=== PATIENT | male | born 2000 | race Asian ===

== ENCOUNTER 2018-01-30 18:34 | Emergency (ER) | payer OTHER ==
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
[2018-01-30 19:49] VITALS: BP 118/76
== END 2018-01-30 19:49 | disposition home or self-care (01) ==
LOC: EDUNIT#
DX: S39.012A Strain of muscle, fascia and tendon of lower back, initial encounter (principal); V04.90XA Pedestrian on foot injured in collision with heavy transport vehicle or bus, unspecified whether traffic or nontraffic accident, initial encounter; Y92.410 Unspecified street and highway as the place of occurrence of the external cause; Y99.8 Other external cause status; Y93.01 Activity, walking, marching and hiking

== ENCOUNTER 2018-02-01 20:29 | Emergency (ER) | payer OTHER ==
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
[2018-02-01] MEDS ORDERED: IOPAMIDOL (ISOVUE-300) 100 ML BTL ONE (22:24)
[2018-02-02 00:24] VITALS: BP 122/75
== END 2018-02-02 00:23 | disposition home or self-care (01) ==
DX: S06.0X0A Concussion without loss of consciousness, initial encounter (principal); S16.1XXA Strain of muscle, fascia and tendon at neck level, initial encounter; S29.019A Strain of muscle and tendon of unspecified wall of thorax, initial encounter; S30.1XXA Contusion of abdominal wall, initial encounter; V04.10XA Pedestrian on foot injured in collision with heavy transport vehicle or bus in traffic accident, initial encounter; Y92.410 Unspecified street and highway as the place of occurrence of the external cause
CPT/HCPCS: 82435-PO; 82565-PO; 82947-PO; 84132-PO; 84295-PO; 84520-PO; 85014-PO; Q9967